=== PATIENT | female | born 1990 | race Hispanic/Latino ===

== ENCOUNTER 2023-03-13 21:41 | Emergency (ER) | payer BC, OTHER ==
--- OUTSIDE RECORDS SUMMARY | 2023-03-13 21:43 | XMS REPORT | Continuity of Care Document ---
:1990 Author Organization [facility] t Address [address] [place] [address] Care Team Providers Name Role Phone Daniel Marte Attending Clinician Unavailable Payers Payer Name Policy Type Policy Number Effective Date Expiration Date S ourhussain [employer] and [id number] 2019 [facility] pirit Blue Shield 00:00:00 - [facility] Problems Condition Condition Condition Status Onset Resolution Last Treating Co mments Source Name Details Category Date Date Treatment Clinician Date [id number] Acute Problem Active Common vaginitis [facility] [id number] Well woman Problem Active Co mmon exam with [facility] routine [facility] gynecologi [facility] [id number] Constipati Problem Active Com mon on, [id number] GERD Problem Active Common without [facility] esophagiti [facility] Allergies, Adverse Reactions, Alerts This patient has no known allergies or adverse reactions. Social History Social Habit Start Date Stop Date Quantity Comments Source Sex Assigned At [facility] Sp palma - [facility] History of Tobacco Light tobacco Com mon Spirit - Use smoker [facility] Smoking Status Start Date Stop Date Source Light tobacco smoker 2020-06-14 00:00:00 [facility] Medications Ordered Filled Start Stop Current Ordering Indication Dosage Frequency Signature Comments Components Source Medication Medication Date Date Medication? Clinician (SIG) Name Name Omeprazole Omeprazole Yes Umesh 1 capsule Common 10-06 Rekhi Spirit 00:00: - [facility] Omeprazole Omeprazole No 1{capsu QD Omeprazole 40 MG 40 MG 2 le} 40 MG 00:00: 00 Omeprazole Omeprazole No 1{capsu QD Omeprazole 40 MG 40 MG 2 le} 40 MG 00:00: 00 Omeprazole Omeprazole No 1{capsu QD Omeprazole 40 MG 40 MG 10-06 le} 40 MG 00:00: 00 Omeprazole Omeprazole No 1{capsu QD Omeprazole 40 MG 40 MG 10-06 le} 40 MG 00:00: 00 Yes Umesh not Co mmon Rekhi defined Spirit - [facility] - - No - Multivitami Multivitami No Multivitam n n in - - No - Multivitami Multivitami No Multivitam n n in - - No - Multivitami Multivitami No Multivitam n n in - - No - Multivitami Multivitami No Multivitam n n in Immunizations Ordered Immunization Filled Immunization Date Status Commen ts Source Name Name Afluria single dose Afluria single dose 2020-05-24 Completed [facility] 11:26:00 [facility] Afluria single dose Afluria single dose 2020-05-24 Completed [facility] 11:26:00 [facility] Afluria single dose Afluria single dose 2020-05-24 Completed [facility] 11:: [facility] Afluria single dose Afluria single dose 2020-05-24 Completed [facility] 11:26:00 [facility] Vital Signs Vital Name Observation Time Observation Value Comments Source height 2020-06-15 10:00:00 64 [in_i] [facility] weight 2020-06-15 10:00:00 157 [lb_av] [facility] bmi 2020-06-15 10:00:00 26.95 kg/m2 [facility] height 2020-06-08 11:20:00 64 [in_i] [facility] weight 2020-06-08 11:20:00 156.9 [lb_av] Common [facility] temperature 2020-06-08 11:20:00 97.8 [degF] Common [facility] bmi 2020-06-08 11:20:00 26.93 kg/m2 Common [facility] oximetry 2020-06-08 11:20:00 100 % Common [facility] respiratory rate 2020-06-08 11:20:00 16 /min Comm on [facility] blood pressure 2020-06-08 11:20:00 138 mm[Hg] Common [facility] - systolic [facility] blood pressure 2020-06-08 11:20:00 81 mm[Hg] Common [facility] diastolic [facility] Procedures This patient has no known procedures. Encounters Start End Encounter Admission Attending Care Care Encounter Source Date/Time Date/Time Type Type Clinicians Facility Department ID 2022-10-13 Outpatient Marte, STLMLC STLC [id number] Common 11:24:[id number] [facility] 2022-09-22 Outpatient Marte, STLMLC STLMLC [id number] Common 13:48:[id number] [facility] 2022-02-20 Outpatient Marte, STLMLC STLMLC [id number] Common 16:26:[id number] [facility] 2021-09-04 Outpatient Marte, STLMLC STLMLC [id number] Common 12:04:[id number] [facility] 2021-09-04 Outpatient Marte, STLMLC STLMLC [id number] Common 12:01:[id number] [facility] 2021-09-04 Outpatient Marte, STLMLC STLMLC [id number] Common 12:01:[id number] [facility] 2021-09-04 Outpatient Marte, STLMLC STLMLC [id number] Common 12:00:[id number] [facility] 2021-09-04 Outpatient Marte, STLMLC STLMLC [id number] Common 12:00:[id number] [facility] 2021-09-04 Outpatient Marte, STLMLC STLMLC [id number] Common 11:59:[id number] [facility] 2020-06-15 2020-06-15 OFFICE STLMLC STLMLC [id number] Co mmon 00:00:00 00:00:00 VISIT EST Spir it PT LEVEL 3 - [facility] 2020-06-15 2020-06-15 (TEL) STLMLC STLMLC [id number] Co mmon 00:00:00 00:00:[address] [facility] 2020-06-11 2020-06-11 (TEL) STLMLC STLMLC [id number] Co mmon 00:00:00 00:00:[address] [facility] 2020-06-08 2020-06-08 PREV VISIT STLC STLC [id number] Common 00:00:00 00:00:00 EST AGE Spirit 18-39 - [facility] 2018-09-22 2018-09-22 [id number] Common 14:45:00 14:45:00 [facility] 2018-07-20 2018-07-20 [facility] [id number] Common 09:45:00 09:45:[address] [facility] 2018-01-27 2018-01-27 [facility] [id number] Common 14:30:00 14:30:[address] [facility] 2018-01-05 2018-01-05 [facility] [id number] Common 09:30:00 09:30:[address] [facility] Results Test Description Test Time Test Comments Results Result Comments Source Lipid Panel With LDL/HDL Ratio Test Item Value Reference Range Interpretation Comme nts Cholesterol, Total (test code = 2093-3) 156 Triglycerides (test code = 2571-8) 56 HDL Cholesterol (test code = 2085-9) 52 UA/M w/rflx Culture, Comp Test Item Value Reference Range Interpretation Comments Specific [place] (test code = 1.013 2965-2) pH (test code = 5803-2) 6.0 Urine-Color (test code = 5778-6) Yellow Appearance (test code = 5767-9) Clear WBC Esterase (test code = 5799-2) Negative Protein (test code = 29591-7) Negative Glucose (test code = 2349-9) Negative Ketones (test code = 2514-8) Negative Occult Blood (test code = 5794-3) 1+ Bilirubin (test code = 5770-3) Negative Urobilinogen,Semi-Qn (test code = 0.2 41637-7) Nitrite, Urine (test code = Negative 5802-4) Microscopic Examination (test code See below: = 53182-8) Urinalysis Reflex (test code = UNLOINC) Prothrombin Time (PT) INR PT/INR Test Item Value Reference Range Interpretation Comments INR (test code = 6301-6) 1.0 Prothrombin Time (test code = 5902-2) 10.8 Hemoglobin A1c Test Item Value Reference Range Interpretation Comments Hemoglobin A1c (test code = 4548-4) 5.1 Comp. Metabolic Panel (14) (CMP) Test Item Value Reference Range Interpretation Comments Glucose (test code = 2345-7) 87 BUN (test code = 3094-0) 9 Creatinine (test code = 2160-0) 0.80 eGFR If NonAfricn Am (test code = 100 71378-8) eGFR If Africn Am (test code = 71353-2) 115 BUN/Creatinine Ratio (test code = 11 3097-3) Sodium (test code = 2951-2) 143 Potassium (test code = 2823-3) 4.9 Chloride (test code = 2075-0) 106 Carbon Dioxide, Total (test code = 2027-9) Calcium (test code = 77569-3) 9.2 Protein, Total (test code = 2885-2) 7.2 Albumin (test code = 1751-7) 4.3 Globulin, Total (test code = 48804-3) 2.9 A/G Ratio (test code = 1759-0) 1.5 Bilirubin, Total (test code = 1974-) 0.6 Alkaline Phosphatase (test code = 60 6768-6) AST (SGOT) (test code = 1920-8) 17 ALT (SGPT) (test code = 1742-6) 12 Uric Acid, Serum Test Item Value Reference Range Interpretation Comments Uric Acid (test code = 3084-1) 4.0 CBC With Differential/Platelet Test Item Value Reference Range Interpretation Comments WBC (test code = 6690-2) 6.8 RBC (test code = 789-8) 4.55 Hemoglobin (test code = 718-7) 13.6 Hematocrit (test code = 4544-3) 41.7 MCV (test code = 787-2) 92 MCH (test code = 785-6) 29.9 MCHC (test code = 786-4) 32.6 RDW (test code = 788-0) 12.3 Platelets (test code = 777-3) 319 Neutrophils (test code = 770-8) 70 Lymphs (test code = 736-9) 24 Monocytes (test code = 5905-5) 4 Eos (test code = 713-8) 2 Basos (test code = 706-2) 0 Immature Cells (test code = UNLOINC) Neutrophils (Absolute) (test code = 4.7 751-8) Lymphs (Absolute) (test code = 731-0) 1.6 Monocytes(Absolute) (test code = 742-7) 0.3 Eos (Absolute) (test code = 711-2) 0.1 Baso (Absolute) (test code = 704-7) 0.0 Immature Granulocytes (test code = 0 48905-6) Immature Grans (Abs) (test code = 0.0 60127-5) NRBC (test code = 36089-0) Hematology Comments: (test code = 60753-8) TSH reflex to T4F Test Item Value Reference Range Interpretation Comments TSH (test code = 92290-5) 1.540
[2023-03-13] MEDS ORDERED: LIDOCAINE 1% MPF 5 ML VIAL ONE (22:49)
[2023-03-13] MEDS ORDERED: CEPHALEXIN 250 MG CAP ONE (22:50)
--- NOTE | 2023-03-13 23:30 | ER ---
Nurse's Notes [facility] Name: Yeny Nelson Age: 33 yrs Sex: Female : 1990 Arrival Date: 03/13/2023 Time: 21:41 Bed 16 Private MD: Daniel Marte Diagnosis: Laceration without foreign body of left forearm Presentation: 03/13 21:45 Chief complaint: EMS states: Toned out for a laceration to left wrist, pt states she ll3 was trying to remove a zip tie and the kitchen knife slipped and cut left wrist, c/o pain 02/16. Coronavirus screen: Vaccine status: Patient reports receiving the 2nd dose of the covid vaccine. At this time, the client does not indicate any symptoms associated with coronavirus-19. Ebola Screen: No symptoms or risks identified at this time. Complicating Factors: Laceration to left wrist. Initial Sepsis Screen: Does the patient meet any 2 criteria? No. Patient's initial sepsis screen is negative. Does the patient have a suspected source of infection? No. Patient's initial sepsis screen is negative. Risk Assessment: Do you want to hurt yourself or someone else? Patient reports no desire to harm self or others. Onset of symptoms was March 13, 2023. 21:45 Method Of Arrival: EMS: [facility] 3 21:45 Acuity: MENDEL 3 ll3 Triage Assessment: 21:47 General: Appears uncomfortable, Behavior is calm, cooperative. Pain: Complains of pain ll3 in palmar aspect of left wrist Pain does not radiate. Pain currently is 7 out of 10 on a pain scale. Pain began suddenly, Is continuous. Derm: Wound noted palmar aspect of left wrist Wound is laceration to left wrist, bleeding controlled. Injury Description: Laceration sustained to palmar aspect of left wrist is clean, 0.5 to 2.5 cm long, was sustained less than 30 minutes ago. is bleeding a small amount. 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 - Social history:: Smoking status: Reported history of juuling and/or vaping. - Family history:: not pertinent. Screenin:49 [facility] ED Fall Risk Assessment (Adult) History of falling in the last 3 months, ll3 including since admission No falls in past 3 months (0 pts) Confusion or Disorientation No (0 pts) Intoxicated or Sedated No (0 pts) Impaired Gait No (0 pts) Mobility Assist Device Used No (0 pt) Altered Elimination No (0 pt) Score/Fall Risk Level 0 - 2 = Low Risk Oriented to surroundings, Maintained a safe environment, Educated pt \T\ family on fall prevention, incl call for assistance when getting out of bed. Abuse screen: Denies threats or abuse. Denies injuries from another. Nutritional screening: No deficits noted. Tuberculosis screening: No symptoms or risk factors identified. Assessment: 21:47 General: See triage assessment. ll3 21:50 Musculoskeletal: Circulation, motion, and sensation intact. ll3 Vital Signs: 21:43 BP 124 / 78; Pulse 71; Resp 18; Temp 98.6(O); Pulse Ox 99% on R/A; Weight 70.76 kg; oe Height 5 ft. 4 in. ; Pain 7/10; 03/14 00:12 BP 133 / 89; Pulse 72; Resp 16; Pulse Ox 100% on R/A; ll3 04 21:43 Body Mass Index 26.78 (70.76 kg, 162.56 cm) oe 03/13 21:43 Pain Scale: Adult oe ED Course: 03/13 21:41 Patient arrived in ED. am2 21:42 Daniel Marte DO is Private Physician. am2 21:47 Triage completed. ll3 21:47 Arm band placed on Patient placed in an exam room, on a stretcher, on pulse oximetry. ll3 21:49 Patient has correct armband on for positive identification. Bed in low position. Call ll3 light in reach. Side rails up X 1. 22:02 Dev Fermin MD is Attending Physician. [facility] 23:03 Wrist Left (2 View) XRAY In Process Unspecified. EDMS 23:28 Daniel Marte DO is Referral Physician. luiz 23:28 Phil Linder MD is Referral Physician. [facility] 03/14 00:12 Provided Education on: laceration care. ll3 00:12 No provider procedures requiring assistance completed. Patient did not have IV access ll3 during this emergency room visit. Administered Medications: 03/13 22:45 Drug: Cephalexin PO 500 mg Route: PO; ll3 03/14 00:06 Follow up: Response: No adverse reaction ll3 03/13 23:09 Not Given (Patient Refused; vaccine up to datee): Tetanus Toxoid,Adsorbed IM 0.5 ml IM ll3 once; Provide Vaccine Information Statement (VIS). 03/14 00:06 Drug: Mupirocin Topical Ointment 2 % 1 application Route: Topical; Site: affected area; ll3 00:13 Follow up: Response: Medication administered at discharge. ll3 00:06 Drug: Hydrocodone-Acetaminophen PO (7.5 mg-325 mg) 1 tabs Route: PO; ll3 00:13 Follow up: Response: Medication administered at discharge. ll3 Medication: 03/13 22:35 VIS not applicable for this client. ll3 Outcome: 23:30 Discharge ordered by . [facility] 03/14 00:12 Discharged to home ambulatory, with family, with significant other. ll3 Condition: stable Discharge instructions given to patient, family, significant other, Instructed on discharge instructions, follow up and referral plans. medication usage, Demonstrated understanding of instructions, follow-up care, medications, Prescriptions given X 3. 00:13 Patient left the ED. ll3 Signatures: Dispatcher [employer] EDHI Dev Fermin MD MD cha Espinosa, Orlando oe Moreno, Amanda am2 Loubet, Lynsea, RN RN ll3 Corrections: (The following items were deleted from the chart) 03/13 21:49 21:43 General: See triage assessment. ll3 ll3
--- NOTE | 2023-03-13 23:30 | EDPHYS ---
Physician Documentation [facility] Name: Yeny Nelson Age: 33 yrs Sex: Female : 1990 Arrival Date: 03/13/2023 Time: 21:41 Bed 16 Private MD: Estuardo [facility] ED Physician Dev Fermin HPI: 03/13 23:25 This 33 yrs old Female presents to ER via EMS with complaints of Laceration. luiz 23:25 The patient or guardian reports a laceration, pain, a puncture wound. The complaints luiz affect the left wrist diffusely. Context[place] penetrating injury, by a knife. Onset: The symptoms/episode began/occurred just prior to arrival. Modifying factors: The symptoms are alleviated by nothing, the symptoms are aggravated by nothing. Associated signs and symptoms: The patient has no apparent associated signs or symptoms. Compartment Syndrome negative for numbness, pain, tingling. The patient has not experienced similar symptoms in the past. 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 - Social history:: Smoking status: Reported history of juuling and/or vaping. - Family history:: not pertinent. ROS: 23:25 Constitutional: Negative for fever, chills, and weight loss, Eyes: Negative for injury, luiz pain, redness, and discharge, ENT: Negative for injury, pain, and discharge, Neck: Negative for injury, pain, and swelling, Cardiovascular: Negative for chest pain, palpitations, and edema, Respiratory: Negative for shortness of breath, cough, wheezing, and pleuritic chest pain, Abdomen/GI: Negative for abdominal pain, nausea, vomiting, diarrhea, and constipation, Back: Negative for injury and pain, : Negative for injury, bleeding, discharge, and swelling, Skin: Negative for injury, rash, and discoloration, Neuro: Negative for headache, weakness, numbness, tingling, and seizure, Psych: Negative for depression, anxiety, suicide ideation, homicidal ideation, and hallucinations, Allergy/Immunology: Negative for hives, rash, and allergies, Endocrine: Negative for neck swelling, polydipsia, polyuria, polyphagia, and marked weight changes, Hematologic/Lymphatic: Negative for swollen nodes, abnormal bleeding, and unusual bruising. 23:25 MS/extremity: Positive for decreased range of motion, swelling, tenderness, of the medial aspect of left wrist. Exam: 23:25 Constitutional: This is a well developed, well nourished patient who is awake, alert, luiz and in no acute distress. Head/Face: Normocephalic, atraumatic. Eyes: Pupils equal round and reactive to light, extra-ocular motions intact. Lids and lashes normal. Conjunctiva and sclera are non-icteric and not injected. Cornea within normal limits. Periorbital areas with no swelling, redness, or edema. ENT: Nares patent. No nasal discharge, no septal abnormalities noted. Tympanic membranes are normal and external auditory canals are clear. Oropharynx with no redness, swelling, or masses, exudates, or evidence of obstruction, uvula midline. Mucous membranes moist. Neck: Trachea midline, no thyromegaly or masses palpated, and no cervical lymphadenopathy. Supple, full range of motion without nuchal rigidity, or vertebral point tenderness. No Meningismus. Chest/axilla: Normal chest wall appearance and motion. Nontender with no deformity. No lesions are appreciated. Cardiovascular: Regular rate and rhythm with a normal S1 and S2. No gallops, murmurs, or rubs. Normal PMI, no JVD. No pulse deficits. Respiratory: Lungs have equal breath sounds bilaterally, clear to auscultation and percussion. No rales, rhonchi or wheezes noted. No increased work of breathing, no retractions or nasal flaring. Abdomen/GI: Soft, non-tender, with normal bowel sounds. No distension or tympany. No guarding or rebound. No evidence of tenderness throughout. Back: No spinal tenderness. No costovertebral tenderness. Full range of motion. Skin: Warm, dry with normal turgor. Normal color with no rashes, no lesions, and no evidence of cellulitis. Neuro: Awake and alert, GCS 15, oriented to person, place, time, and situation. Cranial nerves II-XII grossly intact. Motor strength 5/5 in all extremities. Sensory grossly intact. Cerebellar exam normal. Normal gait. Psych: Awake, alert, with orientation to person, place and time. Behavior, mood, and affect are within normal limits. 23:25 Musculoskeletal/extremity: ROM: full active range of motion, full passive range of motion, Circulation is intact in all extremities. Sensation intact. Compartment Syndrome exam of affected extremity: is normal. Vital Signs: 21:43 BP 124 / 78; Pulse 71; Resp 18; Temp 98.6(O); Pulse Ox 99% on R/A; Weight 70.76 kg; oe Height 5 ft. 4 in. ; Pain 7/10; 03/14 00:12 BP 133 / 89; Pulse 72; Resp 16; Pulse Ox 100% on R/A; ll3 03/13 21:43 Body Mass Index 26.78 (70.76 kg, 162.56 cm) oe 03/13 21:43 Pain Scale: Adult oe MDM: 03/13 22:02 Patient medically screened. [facility] 23:25 Differential diagnosis: contusion, abrasion, tendonitis. Data reviewed: vital signs, [facility] nurses notes. Consideration of Admission/Observation Escalation of care including admission/observation considered. I considered the following discharge prescriptions or medication management in the emergency department Medications were administered in the Emergency Department. See MAR. Test considered but Not performed: Labs: NO LABS. Historians other than the Patient: Spouse/Significant Other: . Care significantly affected by the following chronic conditions: NONE. Counseling: I had a detailed discussion with the patient and/or guardian regarding: the historical points, exam findings, and any diagnostic results supporting the discharge/admit diagnosis, the need for outpatient follow up, for definitive care, a family practitioner, a general surgeon. 03/13 22:35 Order name: Wrist Left (2 View) XRAY ll3 03/13 22:43 Order name: Dressing - Wound; Complete Time: 00:07 ll3 03/13 22:43 Order name: Gloves, Sterile; Complete Time: 22:44 ll3 03/13 22:43 Order name: Setup Suture Tray; Complete Time: 22:44 ll3 Administered Medications: 22:45 Drug: Cephalexin PO 500 mg Route: PO; ll3 03/14 00:06 Follow up: Response: No adverse reaction ll3 03/13 23:09 Not Given (Patient Refused; vaccine up to datee): Tetanus Toxoid,Adsorbed IM 0.5 ml IM ll3 once; Provide Vaccine Information Statement (VIS). 03/14 00:06 Drug: Mupirocin Topical Ointment 2 % 1 application Route: Topical; Site: affected area; ll3 00:13 Follow up: Response: Medication administered at discharge. ll3 00:06 Drug: Hydrocodone-Acetaminophen PO (7.5 mg-325 mg) 1 tabs Route: PO; ll3 00:13 Follow up: Response: Medication administered at discharge. ll3 Disposition Summary: 03/13/23 23:30 Discharge Ordered Location: Home luiz Problem: new luiz Symptoms: have improved luiz Condition: Stable luiz Diagnosis - Laceration without foreign body of left forearm luiz Followup: luiz - With: Daniel Marte DO - When: 2 - 3 days - Reason: Recheck today's complaints, Continuance of care, Re-evaluation by your physician Followup: luiz - With: Phil Linder MD - When: 2 - 3 days - Reason: Recheck today's complaints, Re-evaluation by your physician Discharge Instructions: - Discharge Summary Sheet luiz - Laceration Care, Adult luiz - Puncture Wound luiz - Laceration Care, Adult, [id number] luiz - Puncture Wound, [id number] [facility] Forms: - Medication Reconciliation Form [facility] - Thank You Letter luiz - Antibiotic Education luiz - Prescription Opioid Use luiz - Patient Portal Instructions [facility] Prescriptions: - Centany 2 % Topical ointment - apply 1 application by TOPICAL route 4 times per day; 15 gram; Refills: 0, [facility] Product Selection Permitted - acetaminophen-codeine 300-30 mg Oral tablet - take 2 tablet by ORAL route every 6 hours; 20 tablet; Refills: 0, Product [facility] Selection Permitted - Cephalexin 500 mg Oral Capsule - take 1 capsule by ORAL route every 6 hours for 7 days; 28 capsule; Refills: 0, [facility] Product Selection Permitted Signatures: Dispatcher [employer] Dev Samson MD MD cha Loubet, Lynsea, RN RN ll3
[2023-03-14] MEDS ORDERED: HYDROCODONE/APAP 7.5/325 MG TAB ONE (00:11)
[2023-03-14 00:33] VITALS: TEMP 98.6
[2023-03-14 00:35] VITALS: BP 133/89; O2SAT 100
--- NOTE | 2023-03-14 23:18 | RAD REPORT ---
EXAM DESCRIPTION: Wrist Left 2 View CLINICAL HISTORY: Laceration COMPARISON: None. FINDINGS: 2 views of the left wrist. No acute fracture or dislocation. Normal osseous mineralization . No radiopaque foreign body. IMPRESSION: 1. No acute fracture or dislocation. Electronically signed by: rKis Olivas 03/13/2023 11:22 PM CDT Due to temporary technical issues with the PACS/Fluency reporting system, reports are being signed by the in house radiologists without review as a courtesy to insure prompt reporting. The interpreting radiologist is fully responsible for the content of the report.
== END 2023-03-14 00:13 | disposition home or self-care (01) ==
LOC: ER 21:41
DX: S51.812A Laceration without foreign body of left forearm, initial encounter (principal)
CPT/HCPCS: 73100; 99284; J2001